=== PATIENT | female | born 1950 | race Hispanic/Latino ===

== ENCOUNTER 2018-11-05 05:55 | Inpatient (IN) | payer MEDICARE ==
[2018-11-03 15:40] VITALS: BP 186/98
[2018-11-03 16:10] LABS: BASOPHILS % (AUTO) 1.1 % (0.0-5.0); HEMATOCRIT 30.6 % (36-48); LYMPHOCYTES % (AUTO) 14.8 % (21.0-51.0); MEAN CORPUSCULAR HEMOGLOBIN 32.3 pg (27.0-33.0); MEAN CORPUSCULAR HGB CONC 32.9 g/dL (32.0-36.0); MONOCYTES % (AUTO) 11.5 % (3.0-13.0); NEUTROPHILS % (AUTO) 69.6 % (40.0-77.0); NUCLEATED RED BLOOD CELLS 0.1 % (0.0-0.19); PLATELET COUNT (AUTO) 306 K/uL (130-400); RED BLOOD CELL COUNT(AUTO) 3.12 MIL/uL (4.00-5.50); RED CELL DISTRIBUTION WIDTH 15.9 % (11.0-15.5); WHITE BLOOD COUNT (AUTO) 7.8 K/uL (4.8-10.8)
[2018-11-03 16:24] LABS: CREATININE 6.7 mg/dL (0.5-1.5); POTASSIUM 5.1 mmol/L (3.5-5.1)
--- NOTE | 2018-11-03 16:40 | NUR ---
URINALYSIS ORDER PATIENT IS ON DIALYSIS AND NOT ABLE TO PROVIDE URINE. STATES SHE DOSE NOT GO OFTEN.
[2018-11-03 16:50] LABS: INR 0.99 (0.85-1.15); PARTIAL THROMBOPLASTIN TIME 28.7 SEC (26.3-35.5); PROTHROMBIN TIME 10.4 SEC (9.6-11.6)
--- NOTE | 2018-11-04 12:54 | NUR ---
Called Ashley Hutchinson NP to advised of pt UA not being collected due to patient does not void much, h/h 10.1/30.6, Potassium 5.1, BUN 43, Transmission Systems Operator 6.7 and pt taking antibiotics for an eye infection. Ashley Hutchinson NP is aware and no new orders.
[2018-11-05] VITALS (14 sets, daily range): BP systolic 137–171; BP diastolic 65–89
[~2018-11-05] VITALS: Ht 162.6 cm; Wt 48.7 kg
[~2018-11-05 05:55] MED LIST: AMLO10TA7 PO; CEPHALEXIN PO; CHOL100040 PO; CLON1PAT13 TD; DONE5TAB33 PO; FOLI1TAB61 PO; HYDR100T27 PO; LOSA100T58 PO; METO50TA18 PO; RENVELA PO; ROPI0.5T5 PO
[2018-11-05] MEDS ORDERED: IOHEXOL 350 MG/ML 100ML INFUS..BTL IV ONE (07:11)
[2018-11-05] MEDS ORDERED: IOHEXOL-350 50ML VIAL IV ONE (07:11)
[2018-11-05] MEDS ORDERED: LIDOCAINE HCL 2% 20ML ONE (07:11)
[2018-11-05] MEDS ORDERED: SODIUM CHLORIDE 0.9% 1000ML 1,000 ML IV SCH (08:00)
--- NOTE | 2018-11-05 11:13 | NUR ---
DR. JAY DALEY
--- NOTE | 2018-11-05 12:55 | NUR ---
ARRIVAL TO FLOOR ROOM 201. PT IS AAOX4 DENIES CP DENIES SOB DENIES NV NO COMPLAINTS. RIGHT GROIN ANGIOSEAL SITE IS WNL, CLEAN DRY AND INTACT. SON IS AT BEDSIDE PLAN FOR DIALYSIS TODAY. PENDING DR VELAZCO TO ROUND.
[2018-11-05] MEDS ORDERED: HEPARIN SODIUM 10000 UNIT/ML 1ML VIAL IJ ONE (13:06)
[2018-11-05] MEDS ORDERED: HEPARIN SODIUM 1000UNIT/ML 10ML VIAL IV ONE (13:06)
[2018-11-05] MEDS ORDERED: CALCIUM CHLORIDE 100 MG/ML 10 ML SYG IVP ONE (13:06)
[2018-11-05] MEDS ORDERED: DEXTROSE 50%-WATER 50 ML DISP.SYRIN IV PRN (13:15)
[2018-11-05] MEDS ORDERED: GLUCAGON 1MG KIT 1 MG ML IM PRN (13:15)
[2018-11-05] MEDS ORDERED: LIDOCAINE HCL-MPF 1% 2ML VIAL IVP PRN ×2 (13:15)
[2018-11-05] MEDS ORDERED: POTASSIUM CHLORIDE 10% ELIXIR 20 MEQ/15 ML UDCUP PO PRN (13:15)
[2018-11-05] MEDS ORDERED: POTASSIUM CHLORIDE 10MEQ/100ML 100 ML IV PRN (13:15)
[2018-11-05] MEDS ORDERED: POTASSIUM CHLORIDE 20 MEQ ERTAB PO PRN (13:15)
[2018-11-05] MEDS: HYDRALAZINE HCL 25 MG TABLET PO SCH (13:26)
[2018-11-05] MEDS ORDERED: TRAMADOL HCL 50 MG TABLET PO PRN ×2 (13:30)
[2018-11-05] MEDS ORDERED: ACETAMINOPHEN 325 MG TAB PO PRN ×3 (13:30→15:30)
[2018-11-05 14:09] LABS: MEAN CORPUSCULAR HEMOGLOBIN 32.4 pg (27.0-33.0); MEAN CORPUSCULAR HGB CONC 32.9 g/dL (32.0-36.0); MEAN CORPUSCULAR VOLUME 98.2 fL (79-99); NUCLEATED RED BLOOD CELLS 0.2 % (0.0-0.19); PLATELET COUNT (AUTO) 283 K/uL (130-400); RED BLOOD CELL COUNT(AUTO) 2.85 MIL/uL (4.00-5.50); RED CELL DISTRIBUTION WIDTH 16.4 % (11.0-15.5)
[2018-11-05 14:13] LABS: ALBUMIN 3.4 g/dL (3.5-5.0); BILIRUBIN,TOTAL 0.3 mg/dL (0.2-1.0); CREATININE 5.5 mg/dL (0.5-1.5); POTASSIUM 4.9 mmol/L (3.5-5.1); TOTAL PROTEIN, SERUM 6.6 g/dL (6.0-8.3)
[2018-11-05 14:16] LABS: HEMOGLOBIN A1C 5.1 % (4.0-6.0)
[2018-11-05 14:20] LABS: INR 1.03 (0.85-1.15); PARTIAL THROMBOPLASTIN TIME 27.3 SEC (26.3-35.5); PROTHROMBIN TIME 10.8 SEC (9.6-11.6)
[2018-11-05] MEDS ORDERED: [UNRECOGNIZED DRUG - OTHER] OD (15:18)
[2018-11-05] MEDS ORDERED: 0.9% SODIUM CHLORIDE 1000 ML IV BAG IV PRN (15:30)
[2018-11-05] MEDS ORDERED: LIDOCAINE HCL-MPF 1% 2ML VIAL IJ PRN (15:30)
[2018-11-05] MEDS ORDERED: SODIUM CHLORIDE 0.9% 1000ML 1,000 ML IV PRN (15:30)
[2018-11-05] MEDS: INSULIN HUMULIN R 100 UNIT/ML 3ML SQ SCH ×2 (16:05→23:00)
--- NOTE | 2018-11-05 16:06 | NUR ---
REFUSED AC HS CHECK
[2018-11-05] MEDS: SEVELAMER HCL 800 MG TABLET PO SCH (16:26)
--- NOTE | 2018-11-05 19:30 | NUR ---
PT STARTING DIALYSIS. PENDING CABG CONSENT. HEPATITIS PANEL ORDERED BY DIALYSIS NURSE.
[2018-11-05] MEDS ORDERED: LOSARTAN 100 MG TABLET PO SCH (21:00)
[2018-11-05] MEDS ORDERED: AMLODIPINE BESYLATE 5 MG TAB PO SCH (21:00)
[2018-11-05] MEDS: HEPARIN SODIUM 5000UNIT/ML 1ML VIAL IJ PRN ×2 (21:10→21:11)
[2018-11-06] VITALS (21 sets, daily range): BP systolic 128–193; BP diastolic 60–95
--- NOTE | 2018-11-06 | NUR ---
PT COMPLETED DIALYSIS. STABLE. 2L REMOVED PER REPORT FROM NURSE. FAMILY AT BEDSIDE. PT STATES NO PAIN. NO DISTRESS NOTED. NO SOB. MEDICATIONS ADMINISTERED AT THIS TIME POST DIALYSIS. BS 88. CONSENT SIGNED FOR CABG. PT AWARE. HAD QUESTIONS ABOUT PROCEDURE. RECEIVED [facility] BEDBATH. LAST BM 11/04.
[2018-11-06] MEDS: METOPROLOL TARTRATE 50 MG TAB PO SCH ×2 (00:09→09:00)
[2018-11-06] MEDS: ROPINIROLE HCL 1 MG TABLET PO SCH ×2 (00:09→23:02)
[2018-11-06] MEDS: DONEPEZIL HCL 5 MG TAB PO SCH ×2 (00:09→23:02)
[2018-11-06] MEDS: HYDRALAZINE HCL 25 MG TABLET PO SCH ×2 (00:09→09:00)
[2018-11-06] MEDS: ATORVASTATIN CALCIUM 20 MG TABLET PO SCH ×2 (00:09→23:02)
[2018-11-06 03:54] LABS: HEMATOCRIT 25.4 % (36-48); MEAN CORPUSCULAR HEMOGLOBIN 33.4 pg (27.0-33.0); MEAN CORPUSCULAR HGB CONC 34.5 g/dL (32.0-36.0); MEAN CORPUSCULAR VOLUME 96.7 fL (79-99); NUCLEATED RED BLOOD CELLS 0.1 % (0.0-0.19); PLATELET COUNT (AUTO) 237 K/uL (130-400); RED BLOOD CELL COUNT(AUTO) 2.63 MIL/uL (4.00-5.50); RED CELL DISTRIBUTION WIDTH 16.8 % (11.0-15.5)
[2018-11-06 04:16] LABS: ALBUMIN 3.2 g/dL (3.5-5.0); BILIRUBIN,TOTAL 0.4 mg/dL (0.2-1.0); CREATININE 3.4 mg/dL (0.5-1.5); MAGNESIUM 1.7 mg/dL (1.80-2.40); POTASSIUM 3.5 mmol/L (3.5-5.1); TOTAL PROTEIN, SERUM 6.5 g/dL (6.0-8.3)
[2018-11-06] MEDS: INSULIN HUMULIN R 100 UNIT/ML 3ML SQ SCH ×4 (07:30→21:00)
[2018-11-06] MEDS: SEVELAMER HCL 800 MG TABLET PO SCH ×3 (08:00→17:00)
[2018-11-06] MEDS: ASPIRIN 325MG EC TAB 325 MG TABLET.DR PO SCH (08:55)
--- NOTE | 2018-11-06 10:34 | NUR ---
DC PLAN VISITED WITH PATIENT. PATIENT LIVES WITH [facility]. INDEPENDENT ABLE TO PERFORM ADL'S. PATIENT HAS NO SERVICES OR DME'S. FEELS SAFE TO RETURN HOME. OPEN TO REHAB [facility]. Addendum: 11/06/18 at 1038 by CARLOS HARRIS RN CM Amended: Links added.
[2018-11-06] MEDS ORDERED: CEFAZOLIN SODIUM 1 GM VIAL IVP PRN (13:00)
[2018-11-06] MEDS: [UNRECOGNIZED DRUG - OTHER] OD SCH ×6 (13:00→23:00)
[2018-11-06] MEDS: CEFAZOLIN OD SCH ×6 (13:00→23:00)
[2018-11-06] MEDS ORDERED: NITROGLYCERIN 50 MG/D5% WATER 1 BOT ONE (14:43)
[2018-11-06] MEDS ORDERED: CEFUROXIME SODIUM 1.5 GM VIAL ONE (15:39)
[2018-11-06] MEDS ORDERED: PROTAMINE SULFATE 10 MG/ML 25ML VIAL IV ONE (15:42)
[2018-11-06] MEDS ORDERED: AMINOCAPROIC ACID 250 MG/ML 20 ML VIAL IV ONE (15:42)
[2018-11-06] MEDS ORDERED: LIDOCAINE PF 2% 5ML ABBOJECT ONE (15:42)
[2018-11-06] MEDS ORDERED: EPINEPHRINE 1 MG/ML AMPULE ONE (15:42)
[2018-11-06] MEDS ORDERED: ESMOLOL HCL 10 MG/ML 10 ML VIAL ONE (15:42)
[2018-11-06] MEDS ORDERED: HEPARIN SODIUM 1000UNIT/ML 10ML VIAL ONE (15:42)
[2018-11-06] MEDS ORDERED: NOREPINEPHRINE BITARTRATE 1 MG/1 ML ML IV ONE (15:42)
[2018-11-06] MEDS ORDERED: SODIUM BICARB 50MEQ 50ML VIAL ONE (15:42)
[2018-11-06] MEDS ORDERED: PROPOFOL 10 MG/ML 20ML VIAL IV ONE (15:43)
[2018-11-06] MEDS ORDERED: FENTANYL CITRATE PF 50 MCG/1 ML 20ML VIAL IJ ONE (15:43)
[2018-11-06] MEDS ORDERED: ROCURONIUM 10MG/1ML SYR 10 MG/ML ML ONE (15:43)
[2018-11-06] MEDS ORDERED: MIDAZOLAM HCL 1 MG/ML 5ML VIAL ONE (15:43)
[2018-11-06] MEDS ORDERED: KETAMINE 50MG/ML SYRINGE 50 MG/ML DISP.SYRIN IV ONE (15:44)
--- NOTE | 2018-11-06 15:46 | NUR ---
Nutrition intervention: Nutrition notification for "meets criteria". Pt admitted for CAD, HTN currently NPO in preparation for procedure. At time of RD visit pt reports appetite but is aware she is unable to eat pre-surgery. Pt with good understanding on dialysis, heart healthy diet, however pt will return post procedure to answer any nutritional questions pt may have. Recommendations: When medically feasible, advance diet therapy to Renal dialysis, 30gm CCD for appropriate diet placement. Addendum: 11/06/18 at [address] RD Amended: Links added.
[2018-11-06] MEDS ORDERED: OCTYL 2-CYANOACRYLATE 1 EACH TP ONE (16:10)
[2018-11-06] MEDS ORDERED: BACITRACIN 50,000 UNIT VIAL ONE (16:10)
[2018-11-06] MEDS ORDERED: PAPAVERINE HCL 30 MG/ML 2ML VIAL ONE (16:10)
[2018-11-06 16:25] LABS: ABG BASE EXCESS 5.7 mmol/L (-2.0-3.0); ABG HCO3 29.9 mmol/L (21.0-28.0); ABG OXYGEN SATURATION 98.4 % (95.0-99.0); ABG PCO2 42 mmHg (32-45)
[2018-11-06] MEDS ORDERED: THROMBIN-JMI 5000 UNIT/VIAL TP ONE (16:41)
[2018-11-06] MEDS ORDERED: SODIUM CHLORIDE 0.9% 500ML 500 ML IV SCH (17:39)
[2018-11-06] MEDS ORDERED: ONDANSETRON HCL 4 MG/2 ML VIAL IV PRN (17:45)
[2018-11-06] MEDS ORDERED: AMINOCAPROIC ACID 15,000 MG in SODIUM CHLORIDE 0.9% 250 ML IV SCH (17:45)
[2018-11-06] MEDS ORDERED: MORPHINE SULFATE 2 MG/ML 1ML SYG IV PRN (17:45)
[2018-11-06] MEDS ORDERED: NITROGLYCERIN 50 MG/D5% WATER 250 BOT IV SCH (17:45)
[2018-11-06] MEDS ORDERED: ACETAMINOPHEN 325 MG TAB PO PRN (17:45)
[2018-11-06] MEDS ORDERED: INSULIN REGULAR, HUMAN 3ML 100 UNIT in SODIUM CHLORIDE 0.9% 99 ML IV SCH ×2 (17:45)
[2018-11-06] MEDS ORDERED: DEXTROSE 50%-WATER 50 ML DISP.SYRIN IV PRN (17:45)
[2018-11-06] MEDS ORDERED: MAGNESIUM 2GM PREMIX 50ML 50 ML IV PRN (17:45)
[2018-11-06] MEDS ORDERED: GLUCAGON 1MG KIT 1 MG ML IM PRN (17:45)
[2018-11-06] MEDS ORDERED: SODIUM CHLORIDE 0.9% 1000ML 1,000 ML IV SCH (17:45)
[2018-11-06] MEDS ORDERED: EPINEPHRINE 8 MG in DEXTROSE 5%-WATER 250 ML IV PRN (17:45)
[2018-11-06] MEDS ORDERED: SODIUM BICARB 50MEQ 50ML VIAL IV PRN (17:45)
[2018-11-06] MEDS ORDERED: MORPHINE SULFATE 4 MG/1ML SYG IV PRN (17:45)
[2018-11-06] MEDS ORDERED: ACETAMINOPHEN 650 MG SUPPOSITORY RC PRN (17:45)
[2018-11-06] MEDS ORDERED: PROPOFOL 1000 MG/100 ML 100 ML IV PRN (17:45)
[2018-11-06] MEDS ORDERED: SODIUM CHLORIDE 0.9% 250 ML IV PRN (17:45)
[2018-11-06] MEDS ORDERED: SODIUM CHLORIDE 0.9% 10 ML VIAL IVP PRN (17:45)
[2018-11-06] MEDS ORDERED: NOREPINEPHRINE 4MG/NS 250ML 250 ML IV PRN (17:45)
[2018-11-06] MEDS ORDERED: POTASSIUM PHOS 15 mMOL+NS250ML 250 ML IV PRN (17:45)
[2018-11-06] MEDS ORDERED: NICARDIPINE HCL 100 MG in SODIUM CHLORIDE 0.9% 100 ML IV PRN (17:45)
[2018-11-06] MEDS ORDERED: ALBUMIN (HUMAN) 5% 250 ML IV PRN (17:45)
[2018-11-06] MEDS ORDERED: POTASSIUM CHLORIDE 20MEQ/100ML 100 ML IV PRN (17:45)
[2018-11-06 18:17] LABS: ABG BASE EXCESS -5.5 mmol/L (-2.0-3.0); ABG HCO3 19.5 mmol/L (21.0-28.0); ABG OXYGEN SATURATION 98.6 % (95.0-99.0); ABG PCO2 36 mmHg (32-45)
--- NOTE | 2018-11-06 19:00 | NUR ---
ASSUMED CARE. BEDSIDE REPORT RECEIVED FROM DAPHNEY MORALES. SEDATED & INTUBATED. NON-RESPONSIVE. BEDSIDE MONITORING SINUS RHYTHM HR 90. ON LEVOPHED, EPINEPHRINE, AND AMIKAR DRIPS INFUSING VIA LEFT IJ CORDIS. CHEST TUBE X1 DRAINING INTO ATRIUM AT 20CM H20 SUCTION. NO LEAK NOTED. DOLAN CATHETER IN PLACE. NO URINE. HEMODIALYSIS PT. TEMP 95.7. PLACED MISTRAL AIR WARMING BLANKET. WILL INITIATE VENT & DRIP WEANING PER CVR PROTOCOLS. FULL ASSESSMENT DOCUMENTED.
[2018-11-06 19:14] LABS: ABG BASE EXCESS -0.2 mmol/L (-2.0-3.0); ABG HCO3 23.4 mmol/L (21.0-28.0); ABG OXYGEN SATURATION 98.1 % (95.0-99.0); ABG PCO2 34 mmHg (32-45)
[2018-11-06 19:32] LABS: HEMATOCRIT 29.8 % (36-48); MEAN CORPUSCULAR HEMOGLOBIN 31.6 pg (27.0-33.0); MEAN CORPUSCULAR HGB CONC 33.2 g/dL (32.0-36.0); MEAN CORPUSCULAR VOLUME 95.3 fL (79-99); PLATELET COUNT (AUTO) 244 K/uL (130-400); RED BLOOD CELL COUNT(AUTO) 3.13 MIL/uL (4.00-5.50); RED CELL DISTRIBUTION WIDTH 17.3 % (11.0-15.5); WHITE BLOOD COUNT (AUTO) 17.9 K/uL (4.8-10.8)
[2018-11-06] MEDS: POTASSIUM CHLORIDE 10MEQ/100ML 100 ML IV PRN ×2 (19:39→23:27)
[2018-11-06 19:44] LABS: CREATININE 4.2 mg/dL (0.5-1.5); MAGNESIUM 1.6 mg/dL (1.80-2.40); PHOSPHORUS 3.2 mg/dL (2.5-4.9)
[2018-11-06 19:45] LABS: INR 1.14 (0.85-1.15); PARTIAL THROMBOPLASTIN TIME 21.7 SEC (26.3-35.5); PROTHROMBIN TIME 11.9 SEC (9.6-11.6)
[2018-11-06] MEDS ORDERED: NICARDIPINE HCL 100 MG in SODIUM CHLORIDE 0.9% 60 ML IV PRN (19:53)
--- NOTE | 2018-11-06 20:00 | NUR ---
NO FAMILY AVAILABLE. CALLED BOOT TURNER. NO FAMILY IN MAIN LOBBY WAITING AREA. PCPTC WENT TO LOOK FOR FAMILY IN 2ND FLOOR WAITING AREA BY ELEVATORS. NO FAMILY AVAILABLE.
[2018-11-06 20:14] LABS: ABG BASE EXCESS 0.3 mmol/L (-2.0-3.0); ABG OXYGEN SATURATION 96.4 % (95.0-99.0); ABG PCO2 36 mmHg (32-45)
[2018-11-06] MEDS: CALCIUM GLUCONATE 1 GM in SODIUM CHLORIDE 0.9% 50 ML IV PRN (20:29)
[2018-11-06] MEDS ORDERED: PHARMACY COMMUNICATION MISC SCH (20:45)
[2018-11-06 21:29] LABS: ABG BASE EXCESS 0.1 mmol/L (-2.0-3.0); ABG HCO3 25.1 mmol/L (21.0-28.0); ABG OXYGEN SATURATION 97.6 % (95.0-99.0); ABG PCO2 42 mmHg (32-45)
--- NOTE | 2018-11-06 21:45 | NUR ---
EXTUBATED PER CVR PROTOCOL. PLACED ON 40% AEROSOL FACEMASK. INSTRUCTED ON IMPORTANCE OF VOICE REST X2 HR IN ORDER TO PREVENT LARYNGEAL EDEMA WHICH MAY PROGRESS TO RESPIRATORY DISTRESS & REINTUBATION. NODDED HEAD IN UNDERSTANDING. WILL CONTINUE TO MONITOR.
--- NOTE | 2018-11-06 22:00 | NUR ---
NO RESPIRATORY DISTRESS TOLERATING 40% AEROSOL FACE MASK. RR 16-20 O2 SAT 98-99%. RESTING, EYES CLOSED, EASILY AROUSABLE. SINUS RHYTHM HR 82.
[2018-11-06 22:52] LABS: ABG BASE EXCESS -2.3 mmol/L (-2.0-3.0); ABG HCO3 23.4 mmol/L (21.0-28.0); ABG OXYGEN SATURATION 96.2 % (95.0-99.0); ABG PCO2 44 mmHg (32-45)
[2018-11-06] MEDS ORDERED: CALCIUM GLUCONATE 1 GM/10 ML VIAL IV ONE (22:54)
[2018-11-07] VITALS (32 sets, daily range): BP systolic 120–184; BP diastolic 53–95
--- NOTE | 2018-11-07 00:27 | NUR ---
NAUSEA GAGGING. C/O NAUSEA. NO EMESIS. STATES SHE FEELS PHLEGM IN THE BACK OF HER THROAT AND IT MAKES HER FEEL NAUSEATED. ENCOURAGED COUGH & DEEP BREATHING. SUCTIONED ORALLY WITH YAUNKER. UNABLE TO EXPECTORATE. ZOFRAN 4MG IV GIVEN PER PRN ORDER. HOB ELEVATED TO 40 DEGREES. PROVIDED SIPS OF WATER. REPORTS FEELING BETTER.
[2018-11-07] MEDS: [UNRECOGNIZED DRUG - OTHER] OD SCH ×11 (01:00→21:32)
[2018-11-07] MEDS: CEFAZOLIN OD SCH ×11 (01:00→21:32)
--- NOTE | 2018-11-07 01:52 | NUR ---
TRANSFER TO ICU 206 VIA BED. ALERT & AWAKE. NO DISTRESS NOTED. SETTLED IN ROOM & RESUMED BEDSIDE MONITORING. SINUS RHYTHM HR 80'S. WILL CONTINUE WEANING DRIPS TOLERATED. CALL LIGHT WITHIN REACH. INSTRUCTED TO CALL FOR ASSISTANCE.
[2018-11-07] MEDS: CEFUROXIME SODIUM 1.5 GM VIAL IVP SCH ×2 (03:10→16:13)
[2018-11-07 04:04] LABS: MEAN CORPUSCULAR HEMOGLOBIN 32.1 pg (27.0-33.0); MEAN CORPUSCULAR HGB CONC 33.6 g/dL (32.0-36.0); MEAN CORPUSCULAR VOLUME 95.5 fL (79-99); NUCLEATED RED BLOOD CELLS 0.1 % (0.0-0.19); PLATELET COUNT (AUTO) 224 K/uL (130-400); RED BLOOD CELL COUNT(AUTO) 2.93 MIL/uL (4.00-5.50); WHITE BLOOD COUNT (AUTO) 14.1 K/uL (4.8-10.8)
[2018-11-07 04:15] LABS: MAGNESIUM 2.4 mg/dL (1.80-2.40); PHOSPHORUS 3.4 mg/dL (2.5-4.9); POTASSIUM 3.5 mmol/L (3.5-5.1)
[2018-11-07 04:20] LABS: INR 1.04 (0.85-1.15); PARTIAL THROMBOPLASTIN TIME 22.3 SEC (26.3-35.5); PROTHROMBIN TIME 10.9 SEC (9.6-11.6)
[2018-11-07 04:22] LABS: ABG BASE EXCESS -2.1 mmol/L (-2.0-3.0); ABG PCO2 46 mmHg (32-45)
[2018-11-07] MEDS ORDERED: CALCIUM GLUCONATE 1 GM/10 ML VIAL IV ONE (04:27)
[2018-11-07] MEDS: POTASSIUM CHLORIDE 10MEQ/100ML 100 ML IV PRN (04:28)
[2018-11-07] MEDS: CALCIUM GLUCONATE 1 GM in SODIUM CHLORIDE 0.9% 50 ML IV PRN (04:29)
--- NOTE | 2018-11-07 05:00 | NUR ---
OUT OF BED TO CARDIAC CHAIR 2 PERSON ASSIST REQUIRED. UNSTEADY STANCE. ELEVATED BLE'S. SCD'S IN PLACE. CALL LIGHT IN LAP. INSTRUCTED TO CALL FOR ASSISTANCE.
[2018-11-07 07:26] LABS: ABG BASE EXCESS -0.1 mmol/L (-2.0-3.0); ABG HCO3 25.3 mmol/L (21.0-28.0); ABG OXYGEN SATURATION 96.3 % (95.0-99.0); ABG PCO2 45 mmHg (32-45)
[2018-11-07] MEDS: INSULIN HUMULIN R 100 UNIT/ML 3ML SQ SCH ×5 (07:30→21:55)
[2018-11-07] MEDS: SEVELAMER HCL 800 MG TABLET PO SCH ×3 (08:00→16:13)
[2018-11-07 08:11] LABS: ABG BASE EXCESS -2.5 mmol/L (-2.0-3.0); ABG HCO3 20.7 mmol/L (21.0-28.0); ABG OXYGEN SATURATION 99.3 % (95.0-99.0); ABG PCO2 31 mmHg (32-45)
--- NOTE | 2018-11-07 08:30 | NUR ---
PT ASSISTED BACK TO BED FOR HD TREATMENT. TOLERATED WELL. CARDENE WEANED OFF ASBP 130-140, HR 58. VS NOTED ON COMPUTER. CONTINUE TO MONITOR PT.
[2018-11-07] MEDS ORDERED: FUROSEMIDE 10 MG/ML 2ML VIAL IV SCH (09:00)
--- NOTE | 2018-11-07 10:25 | NUR ---
DR. Hector ALEXANDER AT BEDSIDE TO SEE PT. PLAN OF CARE DISCUSSED. NEW ORDERS RECEIVED AND NOTED.
--- NOTE | 2018-11-07 11:11 | NUR ---
1056-no Physical Therapy eval this AM, due to Dialysis.Will attempt to see patient in PM. Addendum: 11/07/18 at 1113 by SAGE MENDENHALL, PT PT Amended: Links added.
--- NOTE | 2018-11-07 12:00 | NUR ---
DR. VELAZCO IN TO SEE PT. PLAN OF CARE DISCUSSED. NEW ORDERS RECEIVED AND NOTED.
[2018-11-07] MEDS: ASPIRIN 325MG EC TAB 325 MG TABLET.DR PO SCH (12:38)
[2018-11-07] MEDS: PANTOPRAZOLE SODIUM 40 MG TABLET.DR PO SCH (12:38)
[2018-11-07] MEDS: AMLODIPINE BESYLATE 5 MG TAB PO SCH (12:38)
[2018-11-07] MEDS: LOSARTAN 50 MG TABLET PO SCH (12:38)
--- NOTE | 2018-11-07 19:45 | NUR ---
ASSESSMENT PT RESTING, SITTING UP IN CHAIR. INSULIN INFUSING WITHOUT DIFFICULTY. FAMILY AT BEDSIDE. PT DENIES ANY PAIN/CHEST PAIN/INCISIONAL PAIN, OR S.O.B. PT OCCASIONALLY CONFUSED. DECLINED TO PERFORM I.S. O2 2L NC IN PLACE, SB, SCD IN PLACE. PT ANURIC. MEDIASTINAL CHEST TUBE TO 20 CM SUCTION INTACT. FAMILY QUESTIONS ASKED AND ANSWERED, WHITE BOARD UP-DATED. CALLBELL REVIEWED AND WITHIN REACH. ASSESSMENT COMPLETED, SEE FLOW SHEET.
--- NOTE | 2018-11-07 21:00 | NUR ---
BED PT RETURNED TO BED WITH 2 PERSON ASSIST.
[2018-11-07] MEDS: ATORVASTATIN CALCIUM 20 MG TABLET PO SCH (21:32)
[2018-11-07] MEDS: DONEPEZIL HCL 5 MG TAB PO SCH (21:32)
[2018-11-07] MEDS: ROPINIROLE HCL 1 MG TABLET PO SCH (21:54)
--- NOTE | 2018-11-07 23:00 | NUR ---
ASSESSMENT PT RESTING QUIETLY IN BED. INSULIN INFUSING WITHOUT DIFFICULTY. PT DENIES ANY PAIN/CHEST PAIN/INCISIONAL PAIN, OR S.O.B. O2 2L NC IN PLACE, SB, SCD IN PLACE. PT ANURIC. MEDIASTINAL CHEST TUBE TO 20 CM SUCTION INTACT. CALLBELL WITHIN REACH. ASSESSMENT COMPLETED, SEE FLOW SHEET.
[2018-11-08] VITALS (25 sets, daily range): BP systolic 119–170; BP diastolic 68–95
[2018-11-08] MEDS: [UNRECOGNIZED DRUG - OTHER] OD SCH ×11 (00:43→22:43)
[2018-11-08] MEDS: CEFAZOLIN OD SCH ×11 (00:43→22:43)
[2018-11-08 03:53] LABS: HEMATOCRIT 26.2 % (36-48); MEAN CORPUSCULAR HEMOGLOBIN 32.4 pg (27.0-33.0); MEAN CORPUSCULAR HGB CONC 33.6 g/dL (32.0-36.0); MEAN CORPUSCULAR VOLUME 96.2 fL (79-99); PLATELET COUNT (AUTO) 195 K/uL (130-400); RED BLOOD CELL COUNT(AUTO) 2.73 MIL/uL (4.00-5.50); RED CELL DISTRIBUTION WIDTH 19.5 % (11.0-15.5); WHITE BLOOD COUNT (AUTO) 11.9 K/uL (4.8-10.8)
[2018-11-08 04:02] LABS: LYMPHOCYTES % (MANUAL) 9 % (22-44); MAN.DIFF COMMENT-IMPRESSION MANUAL DIFFERENTIAL; MONOCYTES % (MANUAL) 7 % (2-9); PLATELET MORPHOLOGY COMMENT ADEQUATE; SEGMENTED NEUTROPHILS % 84 % (40-70)
[2018-11-08 04:12] LABS: CREATININE 3.9 mg/dL (0.5-1.5)
--- NOTE | 2018-11-08 06:30 | NUR ---
CHAIR PT UP TO CHAIR
--- NOTE | 2018-11-08 07:17 | NUR ---
REPORT BEDSIDE REPORT GIVEN TO ELDER SHELLEY.
[2018-11-08] MEDS: ENOXAPARIN SODIUM 30 MG/0.3 ML SQ SCH (08:11)
[2018-11-08] MEDS: LOSARTAN 50 MG TABLET PO SCH (08:11)
[2018-11-08] MEDS: AMLODIPINE BESYLATE 5 MG TAB PO SCH (08:11)
[2018-11-08] MEDS: ASPIRIN 325MG EC TAB 325 MG TABLET.DR PO SCH (08:11)
[2018-11-08] MEDS: PANTOPRAZOLE SODIUM 40 MG TABLET.DR PO SCH (08:11)
[2018-11-08] MEDS: SEVELAMER HCL 800 MG TABLET PO SCH ×3 (08:11→18:10)
[2018-11-08] MEDS ORDERED: METOPROLOL TARTRATE 25 MG TAB PO SCH (09:00)
[2018-11-08] MEDS ORDERED: FUROSEMIDE 20 MG TABLET PO SCH (09:00)
--- NOTE | 2018-11-08 11:05 | NUR ---
PT TAKEN TO [facility]. Addendum: 11/08/18 at 1301 by ELDER CHRISTY RN RN lee arreola
[2018-11-08] MEDS: INSULIN HUMULIN R 100 UNIT/ML 3ML SQ SCH (11:30)
[2018-11-08] MEDS: CARVEDILOL 3.125 MG TABLET PO SCH (11:38)
--- NOTE | 2018-11-08 12:00 | NUR ---
DR. ALEXANDER IN TO SEE PT. PLAN OF CARE DISCUSSED. PLAN FOR HD TODAY.
--- NOTE | 2018-11-08 14:00 | NUR ---
DR. NEWMAN IN TO SEE PT. PLAN OF CARE DISCUSSED. NEW ORDERS RECEIVED AND NOTED.
[2018-11-08] MEDS: METOCLOPRAMIDE 10 MG/2 ML VIAL IVP SCH (18:11)
--- NOTE | 2018-11-08 20:15 | NUR ---
ASSESSMENT PT RESTING IN BED. FAMILY AT BEDSIDE. PT DENIES ANY PAIN/CHEST PAIN/INCISIONAL PAIN, OR S.O.B. PT OCCASIONALLY CONFUSED. DECLINED TO PERFORM I.S. O2 2L NC IN PLACE, NSR, SCD IN PLACE. PT ANURIC. MEDIASTINAL CHEST TUBE TO 20 CM SUCTION INTACT. FAMILY QUESTIONS ASKED AND ANSWERED, WHITE BOARD UP-DATED. CALLBELL REVIEWED AND WITHIN REACH. ASSESSMENT COMPLETED, SEE FLOW SHEET.
[2018-11-08] MEDS: ROPINIROLE HCL 1 MG TABLET PO SCH (21:35)
[2018-11-08] MEDS: ATORVASTATIN CALCIUM 20 MG TABLET PO SCH (21:36)
[2018-11-08] MEDS: DONEPEZIL HCL 5 MG TAB PO SCH (21:36)
[2018-11-09] VITALS: BP 160/82
[2018-11-09] MEDS: [UNRECOGNIZED DRUG - OTHER] OD SCH ×10 (00:36→20:16)
[2018-11-09] MEDS: CEFAZOLIN OD SCH ×10 (00:36→20:16)
[2018-11-09] MEDS: METOCLOPRAMIDE 10 MG/2 ML VIAL IVP SCH ×3 (02:11→16:49)
--- NOTE | 2018-11-09 02:30 | NUR ---
CORDIS REMOVED CORDIS REMOVED PER DR.'S ORDERS. PROCEDURE EXPLAINED, PT VERBALIZED UNDERSTANDING OF SAME. CORDIS REMOVED, PRESSURE HELD X10MIN. STERILE DRSG APPLIED, TOLERATED WITHOUT DIFFICULTY.
--- NOTE | 2018-11-09 03:45 | NUR ---
CHEST D/C'D CHEST REMOVED PER DR ORDERS. PROCEDURE EXPLAIN, PT VERBALIZED UNDERSTANDING, SURGICAL DRSG REMOVED, CHEST TUBE REMOVED, VASELINE GAUZE APPLIED,4X4'S APPLIED AND SECURED WITH MEDIPORE TAPE. TOLERATED WITHOUT DIFFICULTY.
[2018-11-09 04:00] VITALS: BP 158/96
[2018-11-09 04:16] LABS: HEMATOCRIT 27.1 % (36-48); MEAN CORPUSCULAR HEMOGLOBIN 32.1 pg (27.0-33.0); MEAN CORPUSCULAR HGB CONC 33.5 g/dL (32.0-36.0); MEAN CORPUSCULAR VOLUME 95.8 fL (79-99); PLATELET COUNT (AUTO) 185 K/uL (130-400); RED BLOOD CELL COUNT(AUTO) 2.83 MIL/uL (4.00-5.50); RED CELL DISTRIBUTION WIDTH 19.5 % (11.0-15.5); WHITE BLOOD COUNT (AUTO) 12.2 K/uL (4.8-10.8)
[2018-11-09 04:19] LABS: CREATININE 3.6 mg/dL (0.5-1.5); POTASSIUM 4.1 mmol/L (3.5-5.1)
--- NOTE | 2018-11-09 07:27 | NUR ---
REPORT REPORT GIVEN TO RADHA SHELLEY.
--- NOTE | 2018-11-09 07:29 | NUR ---
REPORT REPORT GIVEN TO RADHA SHELLEY.
[2018-11-09] MEDS: ASPIRIN 325MG EC TAB 325 MG TABLET.DR PO SCH (07:44)
[2018-11-09] MEDS: AMLODIPINE BESYLATE 5 MG TAB PO SCH (07:44)
[2018-11-09] MEDS: PANTOPRAZOLE SODIUM 40 MG TABLET.DR PO SCH (07:44)
[2018-11-09] MEDS: LOSARTAN 50 MG TABLET PO SCH (07:44)
[2018-11-09] MEDS: SEVELAMER HCL 800 MG TABLET PO SCH ×3 (07:44→16:47)
[2018-11-09] MEDS: CARVEDILOL 3.125 MG TABLET PO SCH (07:44)
[2018-11-09] MEDS: ENOXAPARIN SODIUM 30 MG/0.3 ML SQ SCH (07:48)
[2018-11-09 07:59] VITALS: BP 173/95
[2018-11-09 11:41] VITALS: BP 136/84
[2018-11-09 16:00] VITALS: BP 160/88
--- NOTE | 2018-11-09 19:10 | NUR ---
ASSESSMENT ASSUMED CARE. AA&OX3 TO PERSON, PLACE, AND YEAR ONLY. REORIENTED TO DATE, DAY AND TIME. CALM, NO DISTRESS NOTED. VISITOR IN ROOM. TELE STATUS. SINUS RHYTHM HR 60'S. EPIGASTRIC AREA WITH DRESSING DRY & INTACT. BLE'S WITH SCD'S. INSTRUCTED ON FALL PREVENTION MEASURES. CALL LIGHT WITHIN REACH. INSTRUCTED TO CALL FOR ASSISTANCE.
[2018-11-09 19:25] VITALS: BP 141/80
--- NOTE | 2018-11-09 19:25 | NUR ---
DR REGINE GALINDO HERE TO SEE PT UPDATED. HE REVIEWED CHART, V/S, & MEDS. ORDERS RECEIVED AND CARRIED OUT.
[2018-11-09] MEDS: ATORVASTATIN CALCIUM 20 MG TABLET PO SCH (20:10)
[2018-11-09] MEDS: DONEPEZIL HCL 5 MG TAB PO SCH (20:10)
[2018-11-09] MEDS: ROPINIROLE HCL 1 MG TABLET PO SCH (20:11)
[2018-11-09] MEDS: CARVEDILOL 6.25 MG TABLET PO SCH (20:13)
--- NOTE | 2018-11-10 | NUR ---
ASSESSMENT RESTING, EYES CLOSED, UNLABORED RESPIRATIONS. BED RAILS UP X3. SINUS RHYTHM HR 68. BLINDS OPEN, DOOR AJAR, BED ALARM ON, ROOM IN FRONT OF NURSE'S STATION FOR CLOSE OBSERVATION TO PREVENT FALLS D/T PATIENT WITH DEMENTIA, FORGETFULNESS.
[2018-11-10 00:51] VITALS: BP 151/86
[2018-11-10 04:00] VITALS: BP 163/88
[2018-11-10 04:08] LABS: MEAN CORPUSCULAR HEMOGLOBIN 32.4 pg (27.0-33.0); MEAN CORPUSCULAR HGB CONC 34.2 g/dL (32.0-36.0); MEAN CORPUSCULAR VOLUME 94.9 fL (79-99); PLATELET COUNT (AUTO) 173 K/uL (130-400); RED BLOOD CELL COUNT(AUTO) 2.63 MIL/uL (4.00-5.50); RED CELL DISTRIBUTION WIDTH 18.4 % (11.0-15.5)
[2018-11-10 04:22] LABS: CREATININE 5.3 mg/dL (0.5-1.5); POTASSIUM 4.1 mmol/L (3.5-5.1)
[2018-11-10 08:00] VITALS: BP 154/88
[2018-11-10] MEDS: ASPIRIN 325MG EC TAB 325 MG TABLET.DR PO SCH (08:28)
[2018-11-10] MEDS: SEVELAMER HCL 800 MG TABLET PO SCH ×3 (08:28→16:19)
[2018-11-10] MEDS: PANTOPRAZOLE SODIUM 40 MG TABLET.DR PO SCH (08:29)
[2018-11-10] MEDS: CARVEDILOL 6.25 MG TABLET PO SCH (08:29)
[2018-11-10] MEDS: LOSARTAN 50 MG TABLET PO SCH (08:29)
[2018-11-10] MEDS: AMLODIPINE BESYLATE 5 MG TAB PO SCH ×2 (08:29→21:15)
[2018-11-10] MEDS: ENOXAPARIN SODIUM 30 MG/0.3 ML SQ SCH (08:30)
[2018-11-10] MEDS: [UNRECOGNIZED DRUG - OTHER] OD SCH ×5 (09:00→21:17)
[2018-11-10] MEDS: CEFAZOLIN OD SCH ×5 (09:00→21:17)
--- NOTE | 2018-11-10 12:50 | NUR ---
PT TO BE TRANSFERRED TO [facility] AND REPORT GIVEN TO ARMANI.
--- NOTE | 2018-11-10 13:06 | NUR ---
ARRIVAL TO ROOM 231 PT IS AWAKE AND ALERT SITTING UPRIGHT IN CHAIR, DENIES PAIN NO COMPLAINTS. DOOR AJAR BLINDS OPEN ADEQUATE LIGHTING IN ROOM.
--- NOTE | 2018-11-10 13:34 | NUR ---
DC PLAN SPOKE TO PATIENT REGARDING SNF. SAID AFTER STROKE CAN NOT REMMEBER THINGS AND TO TALK TO SISTER. CALLED SISTER NO ANSWER. LET NURSE KNOW IF FAMILY PRESENT TO PLEASE CALL ME. Addendum: 11/10/18 at 1335 by CARLOS HARRIS RN CM Amended: Links added.
[2018-11-10 15:13] VITALS: BP 116/77
[2018-11-10 19:25] VITALS: BP 121/72
[2018-11-10] MEDS: DONEPEZIL HCL 5 MG TAB PO SCH (21:15)
[2018-11-10] MEDS: ROPINIROLE HCL 1 MG TABLET PO SCH (21:15)
[2018-11-10] MEDS: ATORVASTATIN CALCIUM 20 MG TABLET PO SCH (21:15)
[2018-11-10] MEDS: CARVEDILOL 12.5 MG TABLET PO SCH (21:16)
--- NOTE | 2018-11-10 22:00 | NUR ---
PT IN BED, ABLE TO ANSWER QUESTIONS. AAO3. 2MM SLUGGISH. RIGHT EYE IS DROOPING. STATED INFECTION TO RIGHT EYE. SO MUST TAKE EYE DROPS Q2-3 HRS. PAIN STATED TO RIBS AREA. SP CABG. NO SOB. REQUESTING BRIEF SINCE DOLAN CATHETER WAS REMOVED.
[2018-11-10 23:32] VITALS: BP 115/67
[2018-11-11] VITALS (7 sets, daily range): BP systolic 114–161; BP diastolic 71–91
[2018-11-11] MEDS: CEFAZOLIN OD SCH ×9 (00:02→22:58)
[2018-11-11] MEDS: [UNRECOGNIZED DRUG - OTHER] OD SCH ×9 (00:02→22:58)
[2018-11-11 04:29] LABS: HEMATOCRIT 23.4 % (36-48); MEAN CORPUSCULAR HEMOGLOBIN 33.2 pg (27.0-33.0); MEAN CORPUSCULAR HGB CONC 34.7 g/dL (32.0-36.0); MEAN CORPUSCULAR VOLUME 95.7 fL (79-99); NUCLEATED RED BLOOD CELLS 0.2 % (0.0-0.19); PLATELET COUNT (AUTO) 179 K/uL (130-400); RED BLOOD CELL COUNT(AUTO) 2.45 MIL/uL (4.00-5.50); RED CELL DISTRIBUTION WIDTH 18.3 % (11.0-15.5); WHITE BLOOD COUNT (AUTO) 8.2 K/uL (4.8-10.8)
[2018-11-11 04:55] LABS: CREATININE 6.8 mg/dL (0.5-1.5); PHOSPHORUS 2.3 mg/dL (2.5-4.9); POTASSIUM 4.8 mmol/L (3.5-5.1)
[2018-11-11 06:15] LABS: HEPATITIS Bs ANTIGEN SCREEN P Negative (Negative)
[2018-11-11] MEDS: LOSARTAN 100 MG TABLET PO SCH (07:46)
[2018-11-11] MEDS: SEVELAMER HCL 800 MG TABLET PO SCH ×4 (07:47→17:16)
[2018-11-11] MEDS: AMLODIPINE BESYLATE 5 MG TAB PO SCH ×2 (07:47→20:08)
[2018-11-11] MEDS: ASPIRIN 325MG EC TAB 325 MG TABLET.DR PO SCH (07:47)
[2018-11-11] MEDS: PANTOPRAZOLE SODIUM 40 MG TABLET.DR PO SCH (07:47)
[2018-11-11] MEDS: CARVEDILOL 12.5 MG TABLET PO SCH ×2 (07:47→20:09)
[2018-11-11] MEDS: ENOXAPARIN SODIUM 30 MG/0.3 ML SQ SCH (07:48)
--- NOTE | 2018-11-11 08:00 | NUR ---
ASSESSMENT PT IS AAOX4 DENIES CP DENIES SOB DENIES NV NO COMPLAINTS SITTING UPRIGHT IN CARDIAC CHAIR. AM MEDS GIVEN. NO CONCERNS VOICED. ENCOURAGED COUGH AND DEEP BREATHING WITH HEART PILLOW SPLINTING, ENCOURAGE USE OF IS 10XS Q1HR WHILE AWAKE. CALL LIGHT WITHIN REACH.
[2018-11-11] MEDS ORDERED: EPOETIN ALFA 10,000 UNIT/ML VIAL SQ SCH (13:45)
--- NOTE | 2018-11-11 17:07 | NUR ---
Nutrition f/u: Pt in dialysis treatment at time of RD visit. Pt reports no nutritional questions or concerns. Pt's RN reports no nutritional concerns on his part. rubbish collector reports pt had good appetite and po intake for lunch during dialysis treatment. pt is s/p CABG on 11/07. Current diet therapy Renal Dialysis diet. Recommendations: continue current diet therapy Addendum: 11/11/18 at [address] RD Amended: Links added.
[2018-11-11] MEDS ORDERED: LOSA100T2 PO (17:57)
[2018-11-11] MEDS ORDERED: ATOR20TA65 PO (17:57)
[2018-11-11] MEDS ORDERED: AMLO5TAB4 PO (17:57)
[2018-11-11] MEDS ORDERED: CARV12.580 PO (17:57)
[2018-11-11] MEDS ORDERED: ASPI-891 PO (17:57)
[2018-11-11] MEDS ORDERED: TRAM50TA4 PO (17:57)
--- NOTE | 2018-11-11 20:00 | NUR ---
MUST REFRIGERATE EYE DROPS PER PT [facility]. PLACED IN THE MED ROOM FRIDGE. ADMINISTERED EVERY 2-3HRS DUE TO EYE INFECTION SP CATARACT SX.
[2018-11-11] MEDS: ROPINIROLE HCL 1 MG TABLET PO SCH (20:08)
[2018-11-11] MEDS: ATORVASTATIN CALCIUM 20 MG TABLET PO SCH (20:08)
[2018-11-11] MEDS: DONEPEZIL HCL 5 MG TAB PO SCH (20:08)
--- NOTE | 2018-11-11 22:15 | NUR ---
PT HAS MOMENTS OF CONFUSION WHICH IS WNL DUE TO DEMENTIA. SHE STATED SHE WAS TRYING TO GET AHOLD OF FAMILY MEMBERS. SHE FELT UNWELL. STATED SOB. PLACED ON OXYGEN. AND REDIRECTED AND REORIENTED. THE NIECE CALLED AND WAS INFORMED OF PT STATUS. OTHERWISE PT HAS BEEN STABLE. ABLE TO AMBULATE ON HER OWN. INSTRUCTED TO CALL FOR HELP.
[2018-11-12] MEDS: [UNRECOGNIZED DRUG - OTHER] OD SCH ×6 (03:10→17:30)
[2018-11-12] MEDS: CEFAZOLIN OD SCH ×6 (03:10→17:30)
[2018-11-12 03:55] LABS: HEMATOCRIT 24.1 % (36-48); MEAN CORPUSCULAR HEMOGLOBIN 32.1 pg (27.0-33.0); MEAN CORPUSCULAR HGB CONC 33.9 g/dL (32.0-36.0); MEAN CORPUSCULAR VOLUME 94.6 fL (79-99); PLATELET COUNT (AUTO) 238 K/uL (130-400); RED BLOOD CELL COUNT(AUTO) 2.55 MIL/uL (4.00-5.50); RED CELL DISTRIBUTION WIDTH 17.8 % (11.0-15.5); WHITE BLOOD COUNT (AUTO) 7.5 K/uL (4.8-10.8)
[2018-11-12 04:19] LABS: CREATININE 4.7 mg/dL (0.5-1.5); POTASSIUM 3.6 mmol/L (3.5-5.1)
[2018-11-12 04:38] VITALS: BP 142/76
[2018-11-12 07:51] VITALS: BP 141/88
[2018-11-12] MEDS: SEVELAMER HCL 800 MG TABLET PO SCH ×3 (09:05→17:03)
[2018-11-12] MEDS: AMLODIPINE BESYLATE 5 MG TAB PO SCH (09:05)
[2018-11-12] MEDS: CARVEDILOL 12.5 MG TABLET PO SCH (09:05)
[2018-11-12] MEDS: LOSARTAN 100 MG TABLET PO SCH (09:05)
[2018-11-12] MEDS: ASPIRIN 325MG EC TAB 325 MG TABLET.DR PO SCH (09:05)
[2018-11-12] MEDS: PANTOPRAZOLE SODIUM 40 MG TABLET.DR PO SCH (09:05)
[2018-11-12] MEDS: ENOXAPARIN SODIUM 30 MG/0.3 ML SQ SCH (09:07)
[2018-11-12 11:55] VITALS: BP 149/76
--- NOTE | 2018-11-12 13:19 | NUR ---
DC PLAN MARIA ELENA SIGNED EARLIER. INFO SENT REP [facility] PENDING ACCEPTANCE. WILL GO VIA FACILITY VAN. Addendum: 11/12/18 at 1321 by CARLOS HARRIS RN CM Amended: Links added.
[2018-11-12 16:09] VITALS: BP 149/79
--- NOTE | 2018-11-12 16:30 | NUR ---
DISCHARGE MED REC FAXED TO [facility].
--- NOTE | 2018-11-12 17:00 | NUR ---
DISCHARGE TELE DENAE REMOVED @ THIS TIME. CHEST TUBE SUTURE X 1 REMOVED, NO RESISTANCE. STERI STRIP APPLIED. IV DISCONTINUED. PT INFORMED REPORT TO BE CALLED TO [facility].
--- NOTE | 2018-11-12 17:25 | NUR ---
DISCHARGE REPORT GIVEN TO SHARON DONALD LVN @ [facility].
--- NOTE | 2018-11-12 19:00 | NUR ---
DISCHARGE [facility] STAFF HERE TO TRANSFER PT TO FACILITY. PT TAKEN TO [facility] VEHICLE VIA WC BY [facility] STAFF X 2, ACCOMPANIED BY FAMILY. NO DISTRESS NOTED.
== END 2018-11-12 18:58 | DRG 233 ==
LOC: DAH 05:55 → DAHIP 05:56 → DAH 05:56 → 2AH 12:23 → 2CV 11-06 15:45 → 2BH 11-07 01:51 → 2CH 11-08 18:00 → 2AH 11-10 13:01
PROVIDERS: ADMIT Thoracic Surgery (Cardiothoracic Vascular Surgery); ATTEND Thoracic Surgery (Cardiothoracic Vascular Surgery)
PROC: B2111ZZ Fluoroscopy of Multiple Coronary Arteries using Low Osmolar Contrast (ICD-10-PCS; principal; 2018-11-05)
PROC: 4A023N7 Measurement of Cardiac Sampling and Pressure, Left Heart, Percutaneous Approach (ICD-10-PCS; 2018-11-05)
PROC: 5A1D70Z Performance of Urinary Filtration, Intermittent, Less than 6 Hours Per Day (ICD-10-PCS; 2018-11-05)
PROC: B2151ZZ Fluoroscopy of Left Heart using Low Osmolar Contrast (ICD-10-PCS; 2018-11-05)
PROC: 021009W Bypass Coronary Artery, One Artery from Aorta with Autologous Venous Tissue, Open Approach (ICD-10-PCS; 2018-11-06)
PROC: 06BQ4ZZ Excision of Left Saphenous Vein, Percutaneous Endoscopic Approach (ICD-10-PCS; 2018-11-06)
PROC: 30233N1 Transfusion of Nonautologous Red Blood Cells into Peripheral Vein, Percutaneous Approach (ICD-10-PCS; 2018-11-06)
PROC: 02100Z9 Bypass Coronary Artery, One Artery from Left Internal Mammary, Open Approach (ICD-10-PCS; 2018-11-06 15:37)
PROC: 5A1D70Z Performance of Urinary Filtration, Intermittent, Less than 6 Hours Per Day (ICD-10-PCS; 2018-11-07)
PROC: 5A1D70Z Performance of Urinary Filtration, Intermittent, Less than 6 Hours Per Day (ICD-10-PCS; 2018-11-08)
PROC: 5A1D70Z Performance of Urinary Filtration, Intermittent, Less than 6 Hours Per Day (ICD-10-PCS; 2018-11-11)
DX: I25.10 Atherosclerotic heart disease of native coronary artery without angina pectoris (principal); N18.6 End stage renal disease; D62 Acute posthemorrhagic anemia; I13.11 Hypertensive heart and chronic kidney disease without heart failure, with stage 5 chronic kidney disease, or end stage renal disease; E11.22 Type 2 diabetes mellitus with diabetic chronic kidney disease; E78.5 Hyperlipidemia, unspecified; F03.90 Unspecified dementia, unspecified severity, without behavioral disturbance, psychotic disturbance, mood disturbance, and anxiety; I25.5 Ischemic cardiomyopathy; Z79.899 Other long term (current) drug therapy; Z86.73 Personal history of transient ischemic attack (TIA), and cerebral infarction without residual deficits; Z90.710 Acquired absence of both cervix and uterus; Z98.41 Cataract extraction status, right eye; Z99.2 Dependence on renal dialysis; Z83.3 Family history of diabetes mellitus; Z82.49 Family history of ischemic heart disease and other diseases of the circulatory system
CPT/HCPCS: 36415; 71045; 80048; 80053; 80061; 82330; 82435; 82803; 82947; 82948; 83036; 83605; 83735; 84100; 84132; 84295; 85018; 85025; 85027; 85347; 85610; 85730; 86850; 86900; 86901; 86922; 87340; 87520; 90935; 93005; 93306; 93458; 93880; 94002; 94010; 94150; 97039; A4218; A4606; A7048; C1760; C1894; G0378; J0171; J0610; J0697; J0885; J1644; J1650; J1815; J2001; J2250; J2405; J2440; J2704; J2720; J2765; J3010; J3475; J3490; J7030; J7040; P9016; Q9967

== ENCOUNTER → 2019-05-22 | Outpatient (CLI) | payer MEDICARE ==
[~2019-05-22] MED LIST changes: +ACET-2247 PO; +ALBU2.5V2 IH; +AMLO5TAB4 PO; +ASPI-891 PO; +ATOR20TA65 PO; +CARV12.580 PO; -CEPHALEXIN PO; +CLON0.1T PO; -CLON1PAT13 TD; +DOCU100C33 PO; +LOSA100T2 PO; -LOSA100T58 PO; -METO50TA18 PO; +MONT10TA24 PO; +PANT40TA25 PO; +SEVELAMER PO; +TRAM50TA4 PO; +[UNRECOGNIZED DRUG - OTHER] OD
== END | disposition home or self-care (01) ==
LOC: RAH 13:04
PROVIDERS: ATTEND Thoracic Surgery (Cardiothoracic Vascular Surgery)
DX: I12.0 Hypertensive chronic kidney disease with stage 5 chronic kidney disease or end stage renal disease (principal); N18.6 End stage renal disease; Z99.2 Dependence on renal dialysis
CPT/HCPCS: 93970; G0365